=== PATIENT | male | born 1955 | race Caucasian/White ===

== ENCOUNTER 2018-11-27 20:12 | Inpatient (IN) | payer MEDICARE, BC ==
[~2018-11-27] VITALS: Ht 175.3 cm; Wt 76.2 kg
[2018-12-04 08:00] VITALS: BP 105/71
== END 2018-12-04 19:20 | disposition home or self-care (01) | DRG 286 ==
LOC: ED 21:11 → EDIP 21:15 → 5SO 21:48 → 4EST 12-03 13:33
PROVIDERS: ADMIT Internal Medicine; ATTEND Internal Medicine
PROC: B2111ZZ Fluoroscopy of Multiple Coronary Arteries using Low Osmolar Contrast (ICD-10-PCS; principal; 2018-12-02)
PROC: 4A023N7 Measurement of Cardiac Sampling and Pressure, Left Heart, Percutaneous Approach (ICD-10-PCS; 2018-12-02)
PROC: B2151ZZ Fluoroscopy of Left Heart using Low Osmolar Contrast (ICD-10-PCS; 2018-12-02)
DX: I50.21 Acute systolic (congestive) heart failure (principal); J96.01 Acute respiratory failure with hypoxia; F33.9 Major depressive disorder, recurrent, unspecified; D68.69 Other thrombophilia; E87.3 Alkalosis; I24.8 Other forms of acute ischemic heart disease; I42.9 Cardiomyopathy, unspecified; I25.10 Atherosclerotic heart disease of native coronary artery without angina pectoris; I34.1 Nonrheumatic mitral (valve) prolapse; I48.0 Paroxysmal atrial fibrillation; M10.9 Gout, unspecified; J45.909 Unspecified asthma, uncomplicated; E83.42 Hypomagnesemia; E78.5 Hyperlipidemia, unspecified; Z88.8 Allergy status to other drugs, medicaments and biological substances; Z86.73 Personal history of transient ischemic attack (TIA), and cerebral infarction without residual deficits; Z80.7 Family history of other malignant neoplasms of lymphoid, hematopoietic and related tissues; Z87.891 Personal history of nicotine dependence; Z83.79 Family history of other diseases of the digestive system
CPT/HCPCS: 36415; 71250; 78452; 80048; 80053; 83735; 83880; 84443; 84484; 85025; 93005; 93017; 93306; 93458; 99156; 99291; C1769; C1894; G0378; J1644; J1940; J2250; J2785; J3010; A9502; Q9967